=== PATIENT | male | born 1935 ===

== ENCOUNTER 2020-04-14 07:49 | Outpatient (RCR) | payer MEDICARE, SELFPAY ==
[2020-04-13 16:51] LABS: Hemoglobin 6.8 g/dL (11.7-16.6); Mean Corpuscular HGB Conc 34.3 g/dL (30.0-36.0); Mean Corpuscular Hemoglobin 34.7 pg (28.0-34.0); Mean Platelet Volume 11.1 fL (7.4-10.4); Red Blood Count 1.96 10^6/uL (4.1-5.3); Red Cell Distribution Width 16.7 % (12.1-15.1); White Blood Count 13.4 10^3/uL (4.0-10.0)
[2020-04-13 17:03] LABS: INR 1.24 (0.8-1.2)
[2020-04-13 17:04] LABS: Partial Thromboplastin Time 33.6 SECONDS (23.9-36.7)
[2020-04-13 17:10] LABS: Alanine Aminotransferase 17 U/L (0-41); Albumin Level 3.7 g/dL (3.5-5.2); Alkaline Phosphatase 96 IU/L (40-130); Anion Gap 17.1 (5-19); Aspartate Amino Transferase 35 U/L (0-40); Blood Urea Nitrogen 26 mg/dL (8-23); Calcium 8.8 mg/dL (8.5-10.5); Carbon Dioxide 23 mmol/L (22-29); Chloride 96 mmol/L (98-107); Globulin 3.4 g/dL (1.3-4.6); Glucose 125 mg/dL (65-115); Osmolality Calculated 280 mOsm/kg (285-295); Potassium 4.1 mmol/L (3.5-5.1); Sodium 132 mmol/L (136-145); Total Bilirubin 0.5 mg/dL (0.15-1.2); Total Protein 7.1 g/dL (6.6-8.7); Uric Acid 9.2 mg/dL (3.4-7.0)
[2020-04-13 17:25] LABS: Lactate Dehydrogenase 2007 U/L (135-225)
[2020-04-13 17:26] LABS: Vitamin B12 1946 pg/mL (232-1245)
[2020-04-13 18:29] LABS: LAB Peripheral Smear Sent for Review
--- NOTE | 2020-04-13 18:30 | ONC CON_ITS ---
Dr. Ballesteros New Patient Note Patient: Oren Vizcarra Unit #: [id number]: 1935 Dicatated By: Paulino Ballesteros M.D.Date of Visit: Apr 13, 2020 Onc MED New Patient/Consult Referring Physician: Rebecca Thornton N.P. Chief Complaint: Pancytopenia. 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 He had presented approximately 3 weeks ago with a persistent cough. His initial evaluation, which included a comprehensive metabolic profile, was unrevealing. He was then seen in the office again on 04/10/2020 and at that time his CBC showed pancytopenia with hemoglobin 7.8 g, white blood cell count 10,200 with absolute neutrophil count 700, and platelet count 26,000. Included 30% blasts. The differential at that point he was still taking apixaban for chronic pulmonary embolism, and that was discontinued. He began empiric antibiotic coverage with azithromycin. He is seen now for further management. He says his energy is pretty low and he has had very little activity during the past month or so. His ECOG score is 2. His appetite is not as good, but his weight is stable. For the past several weeks he has been having low-grade fever in the range of 99-100 degrees, usually during the daytime. He has had occasional cold sweats. He has noted increased bruising for a while. He has a fairly longstanding history of epistaxis, usually from the right nostril, and during the past week he has had a serious nosebleed on 2 occasions. He continues to have cough, mostly nonproductive. He has some shortness of breath and he also has had some chest pain. His stools have been a little loose the last few days. He has urinary frequency and nocturia. He has not been aware of any blood in the stool or urine. He has no significant joint or bone pain. He has some tingling in his arms and hands at night. He has no other focal neurologic symptoms. Past Medical History: His medical history consists of benign prostatic hypertrophy, hypercholesterolemia, and nephrolithiasis. He has been followed for a cystic mass of pancreas, and he has a history of pulmonary embolism. Past Surgical History: His only surgery was a rght inguinal hernia repair in 2013. Medications: Azithromycin 1 Tablet (of 250 mg) Oral daily, Benzonatate 1 Capsule (of 100 mg) Oral t.i.d., Mucinex Allergy 1 Tablet Oral t.i.d., Terazosin HCl 1 Tablet (of 5 mg) Capsule Oral daily Allergies: No Known Allergies. Social History: Mr. Vizcarra is . He is a nonsmoker. He does not drink alcohol. Family History: Father of lung cancer at age 73. Mother had congestive heart failure and of a blood clot at age 89. A sister of colon cancer. His brother is in good health at age 81. Review Of Symptoms: Constitutional - His energy is pretty low, and he has limited activity. Appetite is not as good but his weight is stable. He has had low-grade fever daily in the range of 99 to 100 degrees. He has had occasional cold sweats. ECOG score is 2, Eyes - No change in vision, ENMT - No hearing loss. He has tinnitus. He has had some sinus congestion and nosebleeds. No mouth sores. No sore throat or difficulty swallowing, Hematologic/Lymphatic - He has bruising and he recently had 2 serious nosebleeds, Respiratory - He has some shortness of breath. He has had a cough, generally nonproductive. No pleuritic pain or hemoptysis, Cardiovascular - He has had some chest pain. No palpitations, Gastrointestinal - No nausea or vomiting. He has occasional acid reflux. His bowels recently have been kind of loose. No blood in the stool or black stools, Genitourinary (M) - No dysuria or hematuria. He has urinary frequency and nocturia. No urgency or incontinence, Musculoskeletal - He has no significant joint or bone pain, Integumentary - No skin rash, Neurologic - No headache or dizziness. He sometimes feels unsteady. He has had tingling in hands and arms at night. No other focal neurologic symptoms, Psychiatric - No anxiety or depression. He wakes up a lot during the night. Vital Signs: Performed on Apr 13, 2020 15:19: 2, 28.57, 1.94 sq.m, 67.00 in, 99 %, 96 /min, 20 /min, 148/65 mm(hg) (HIGH), 99.0 F (HIGH), and 182.4 lbs (HIGH). Physical Examination: Constitutional - He appears generally weak but not acutely ill, Eyes - Sclerae nonicteric. Conjunctivae clear, ENMT - No lesions noted in the oral cavity. In particular, there are no mucosal hemorrhages noted, Neck - No mass or thyromegaly, Hematologic/Lymphatic - No cervical, clavicular, or axillary adenopathy, Respiratory - Lungs sound clear. He has good air movement bilaterally, Cardiovascular - Heart rhythm is regular. There is no murmur, gallop, or rub noted, Abdomen - Soft and non-tender. Liver and spleen are not enlarged. There is no abdominal mass or ascites noted and there is no inguinal adenopathy, Back/Spine - No spine or CVA tenderness noted, Extremities - Slight edema. Dorsalis pedis pulses are palpable bilaterally. There is a relatively small hemorrhagic eruption in the low anterior tibial area on the left. There are scattered small ecchymosis and/or purpuric lesions. There are no petechiae noted, Integumentary - There is no other skin eruption, Neurologic - No focal neurologic deficits noted. Impression: 1. Patient with pancytopenia and circulating blasts, consistent with acute leukemia. 2. He has persistent cough. Etiology is uncertain. His other medical illnesses include: 3. Hyperlipidemia. 4. Nephrolithiasis. 5. Benign prostatic hypertrophy. 6. Cystic mass of pancreas. 7. History of pulmonary embolism. Plan: The laboratory findings reviewed with the patient and his and we discussed the clinical implications. 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 Even in the recent past we had very poor outcomes with treatment of acute leukemia in elderly patients. However, there are currently treatment options available which potentially are more effective. As such, he is recommended to proceed with bone marrow aspiration/biopsy soon as we can get this scheduled. In the meantime, I will repeat his CBC today with typenex and he will be transfused PRBC and/or platelets as needed. In addition, I will check additional laboratory studies including a CMP, LDH level, uric acid level, and pro time/PTT. He will have further evaluation as indicated. Signed By: Paulino Ballesteros M.D. <<Signature on File>>
[2020-04-13 18:39] LABS: Hematocrit 19.8 % (42.0-52.0); Platelet Count 21 10^3/cmm (130-400)
[2020-04-13 18:40] LABS: Slide Review Slide Review Perform
[2020-04-13 18:50] LABS: Absolute Segmented Neutrophil 0.3 10/cmm (1.6-7.1); Lymphocytes 2 %; Monocytes Absolute 0.8 10^3/cmm (0.1-0.6); Segmented Neutrophils 2 %; Total Cells Counted 100 (0-100)
[2020-04-13 18:51] LABS: Blastocytes 80 % (0-0)
[2020-04-13 18:52] LABS: Platelet Estimate Decreased (Normal)
[2020-04-13 19:30] LABS: Absolute Neutrophil 0.3 10^3/cmm (1.4-6.5); Eosinophils 0 %
[2020-04-14 08:32] LABS: Eosinophils % 0.3 %; Hemoglobin 6.6 g/dL (11.7-16.6); Lymphocytes # 1.5 10^3/uL (0.8-4.8); Lymphocytes % 11.6 %; Mean Corpuscular HGB Conc 34.6 g/dL (30.0-36.0); Mean Corpuscular Hemoglobin 34.9 pg (28.0-34.0); Mean Corpuscular Volume 101.1 fL (80-94); Mean Platelet Volume 11.4 fL (7.4-10.4); Monocytes % 70.6 %; Neutrophils % 7.3 %; Nucleated Red Blood Cells % 0.2 %; Red Blood Count 1.89 10^6/uL (4.1-5.3); Red Cell Distribution Width 16.9 % (12.1-15.1); White Blood Count 12.8 10^3/uL (4.0-10.0)
[2020-04-14 08:40] LABS: INR 1.26 (0.8-1.2)
[2020-04-14 08:41] LABS: Fibrinogen 517 mg/dL (174-498); Partial Thromboplastin Time 30.6 SECONDS (23.9-36.7)
[2020-04-14] MEDS: sodium chloride 0.9% 250 ML 999 ML IV (08:45)
[2020-04-14 08:50] LABS: D Dimer 10.94 ug/mIFEU (0-0.59)
[2020-04-14] MEDS: diphenhydrAMINE 25 mg Capsule PO (08:50)
[2020-04-14] MEDS: acetaminophen 325 mg Tablet 650 MG PO (09:05)
[2020-04-14 09:26] LABS: Hematocrit 19.1 % (42.0-52.0); Neutrophils # 0.94 10^3/uL (1.8-7.7); Platelet Count 27 10^3/cmm (130-400)
[2020-04-14 09:50] VITALS: BP 126/65; PULSE 91; RESP 18; TEMP 37.7; O2SAT 9
[2020-04-14 10:05] VITALS: BP 114/64; PULSE 96; RESP 18; TEMP 37.7
[2020-04-14 10:55] VITALS: BP 126/62; PULSE 94; RESP 18; TEMP 37.6; O2SAT 92
[2020-04-14 11:05] VITALS: BP 126/62; PULSE 90; RESP 18; TEMP 37.7; O2SAT 90
[2020-04-14] MEDS: FUROsemide 10 mg/mL SDV 2mL 20 MG IV (11:05)
[2020-04-14 12:15] VITALS: BP 146/72; PULSE 82; RESP 18; TEMP 37.2; O2SAT 92
[2020-04-17 10:46] LABS: Coronavirus Lab Test PTC Negative
== END 2020-05-11 23:59 | disposition home or self-care (01) ==
LOC: ONCMED 07:49
PROVIDERS: PCP Nurse Practitioner; Visit Provider Internal Medicine Medical Oncology
DX: D61.818 Other pancytopenia (principal); C95.00 Acute leukemia of unspecified cell type not having achieved remission; D64.9 Anemia, unspecified; R04.0 Epistaxis; R05 Cough; D68.9 Coagulation defect, unspecified; E78.5 Hyperlipidemia, unspecified; N20.0 Calculus of kidney; N40.0 Benign prostatic hyperplasia without lower urinary tract symptoms; K86.9 Disease of pancreas, unspecified; Z20.828 Contact with and (suspected) exposure to other viral communicable diseases; Z86.711 Personal history of pulmonary embolism
CPT/HCPCS: 36415; 36430; 80053; 82607; 83615; 84550; 85007; 85025; 85362; 85378; 85384; 85610; 85730; 86850; 86900; 86920; 87635; 99205; J1940; J7050; P9040